=== PATIENT | female | born 1960 | race Asian ===

== ENCOUNTER 2020-11-25 01:24 | Emergency (ER) | payer BC ==
[~2020-11-25] VITALS: Ht 160 cm; Wt 64.9 kg
--- NOTE | 2020-11-25 01:45 | NUR ---
BIBFAMILY C/O DIZZINESS. ALSO C/O NAUSEA AND SOB. O2 SAT 100% ON ARRIVAL. APPEARS ANXIOUS. NOTED HYPERTENSION. PT PLACED IN GOWN AND ON CONTINOUS HORSE SHOW JUDGE AND PULSE OX. PENDING MD DELEON, WILL CONTINUE TO MONITOR
--- NOTE | 2020-11-25 01:48 | NUR ---
dr allen at bed side
[2020-11-25] MEDS ORDERED: ONDANSETRON HCL/PF 4 MG/2 ML VIAL ONE ×2 (01:54→02:40)
[2020-11-25] MEDS ORDERED: DIAZEPAM 5 MG/ML 2 ML DISP.SYRIN ONE (01:55)
[2020-11-25] MEDS ORDERED: IV NS 0.9% 1,000 ML BAG IV ONE (02:00)
[2020-11-25] MEDS ORDERED: ONDANSETRON HCL/PF 4 MG/2 ML VIAL IVP ONE (02:00)
[2020-11-25] MEDS ORDERED: DIAZEPAM 5 MG TABLET PO ONE (02:00)
[2020-11-25 02:06] LABS: BASOPHILS # (AUTO) 0.1 /CMM (0.0-0.2); BASOPHILS % (AUTO) 1.2 % (0.0-2.0); EOSINOPHILS % (AUTO) 1.2 % (0.0-6.0); HEMATOCRIT 42 % (33-45); HEMOGLOBIN 14.4 g/dL (11.5-14.8); LYMPHOCYTES # (AUTO) 2.4 /CMM (0.8-4.8); LYMPHOCYTES % (AUTO) 26.2 % (20.0-44.0); MEAN CORPUSCULAR HGB CONC 34 g/dl (31.0-36.0); MEAN CORPUSCULAR VOLUME 93 fL (82-100); MONOCYTES # (AUTO) 0.7 /CMM (0.1-1.30); MONOCYTES % (AUTO) 7.4 % (2.0-12.0); NEUTROPHILS # (AUTO) 5.8 /CMM (1.8-8.9); PLATELET COUNT (AUTO) 242 /CMM (150-450); RED BLOOD CELL COUNT(AUTO) 4.54 MIL/uL (4.0-5.2)
[2020-11-25 02:15] LABS: CALCIUM, SERUM 9.3 mg/dL (8.5-10.1); CREATININE 0.9 mg/dL (0.6-1.3); POTASSIUM 3.2 mmol/L (3.5-5.1)
[2020-11-25 02:21] LABS: BILIRUBIN,DIRECT 0.1 mg/dL (0.0-0.2); BILIRUBIN,TOTAL 0.6 mg/dL (0.2-1.0); TOTAL PROTEIN, SERUM 7.3 g/dL (6.4-8.2)
[2020-11-25] MEDS ORDERED: DIAZEPAM 5 MG TABLET ONE (02:41)
[2020-11-25] MEDS ORDERED: ONDANSETRON HCL/PF 4 MG/2 ML VIAL IV ONE (03:00)
[2020-11-25] MEDS ORDERED: DIAZ5TAB PO (03:38)
[2020-11-25] MEDS ORDERED: ONDA4TAB5 PO (03:38)
[2020-11-25 03:53] VITALS: BP 148/72
--- NOTE | 2020-11-25 03:53 | NUR ---
Patient discharged to home in stable condition. Written and verbal after care instructions given. Patient verbalizes understanding of instruction.IV removed. Catheter intact and site benign. Pressure and 4x4 applied to site. No bleeding noted.Pt ambulatory with a steady gait. Pt instructed not to drive, verbalized understanding and left with
--- NOTE | 2020-11-27 07:24 | NUR ---
DIAZEPAM 5MG IV WAS WASTED BY ME AND WITHNESSED BY HERACLIO ALCAZAR RN.
== END 2020-11-25 03:53 | disposition home or self-care (01) ==
LOC: ER 01:29
DX: R11.0 Nausea (principal); F41.0 Panic disorder [episodic paroxysmal anxiety]; R42 Dizziness and giddiness
CPT/HCPCS: 36415; 70450; 71045; 80048; 80076; 85025; 93005; 96361; 96374; 96376; 99285; J2405 ×2; J3360; J7030